=== PATIENT | female | born 1985 | race Caucasian/White ===

== ENCOUNTER → 2018-06-23 | Outpatient (CLI) | payer BC ==
--- NOTE | 2018-06-23 15:27 | PCVCIMAG ---
APPROVED REPORT Study performed: 06/23/2018 12:42:03 EXAM: Comprehensive 2D, Doppler, and color-flow Echocardiogram Patient Location: Echo lab Status: routine BSA: 1.89 HR: 97 bpmBP: 110/90 mmHg Rhythm: NSR Other Information Study Quality: Good Risk Factors: Cardiac Risk Factors: FHX of CAD Indications Chest Pain 2D Dimensions IVSd: 12.10 (7-11mm)LVOT Diam: 17.69 (18-24mm) LVDd: 35.49 mm PWd: 12.06 (7-11mm)Ascending Ao: 32.98 (22-36mm) LVDs: 25.64 (25-40mm) Left Atrium: 32.24 (27-40mm) Aortic Root: 30.20 mm LV Single Plane 4CH: 66.99 % LV Single Plane 2CH: 68.57 % Biplane EF: 68.3 % Volumes Left Atrial Volume (Systole) Single Plane 4CH: 29.91 mLSingle Plane 2CH: 37.46 mL LA ESV Index: 18.00 mL/m2 Aortic Valve AoV Peak Jer.: 1.34 m/s AO Peak Gr.: 7.14 mmHgLVOT Max P.05 mmHg LVOT Max V: 1.01 m/s PRISCILA Vmax: 1.85 cm2 Mitral Valve E/A Ratio: 1.5 MV Decel. Time: 216.42 ms MV E Max Jer.: 0.94 m/s MV A Jer.: 0.61 m/s IVRT: 93.43 ms TDI E/Lateral E': 7.83E/Medial E': 10.44 Medial E' Jer.: 0.09 m/s Lateral E' Jer.: 0.12 m/s Pulmonary Valve PV Peak Gr.: 2.96 mmHg Pulmonary Vein P Vein S: 0.58 m/sP Vein A: 0.48 m/s P Vein D: 0.48 m/sP Vein A Dur.: 79.6 msec P Vein S/D Ratio: 1.21 Left Ventricle The left ventricle is normal size. There is normal LV segmental wall motion. There is normal left ventricular wall thickness. Left ventricular systolic function is normal. The left ventricular ejection fraction is within the normal range. LVEF is 65%. The left ventricular diastolic function is normal. Right Ventricle The right ventricle is normal size. The right ventricular systolic function is normal. Atria The left atrium size is normal. The right atrium size is normal. Aortic Valve The aortic valve is normal in structure. No aortic regurgitation is present. There is no aortic valvular stenosis. Mitral Valve The mitral valve is normal in structure. There is no mitral valve regurgitation noted. No evidence of mitral valve stenosis. Tricuspid Valve The tricuspid valve is normal in structure. There is no tricuspid valve regurgitation noted. Pulmonic Valve The pulmonary valve is normal in structure. There is no pulmonic valvular regurgitation. Great Vessels The aortic root is normal in size. IVC is normal in size and collapses with >50% inspiration Pericardium There is no pericardial effusion. <Conclusion> The left ventricle is normal size. There is normal left ventricular wall thickness. Left ventricular systolic function is normal. The right ventricle is normal size. The left atrium size is normal. The right atrium size is normal. There is no aortic valvular stenosis. There is no mitral valve regurgitation noted. There is no tricuspid valve regurgitation noted.
--- NOTE | 2018-06-23 15:35 | PCVCIMAG ---
APPROVED REPORT Study performed: 06/23/2018 12:57:58 Exam: Stress Echocardiogram Indication: chest pain, family hx Patient Location: Echo lab Stress Nurse: Smiley Jerez RN Status: routine Ht: 5 ft 5 in HR: 97 bpm BP: 110/90 mmHg Medical History Medical History: HTN Procedure The patient underwent an Exercise Stress Test using the Rene Protocol. Blood pressure, heart rate, and EKG were monitored. An Echocardiogram was performed by security system technician in four stages in quad fashion. At peak stress, four selected images were obtained and placed side by side with resting images for comparison. Stress Test Details Stress Test: Exercise stress testing was performed using a Rene protocol. HR Resting HR: 97 bpmMax Heart Rate (APMHR): 186 bpm Max HR Achieved: 196 bpmTarget HR (85% APMHR): 158 bpm % of APMHR: 105 HR response to stress: Normal HR response to stress BP Resting BP: 110/90 mmHg Max BP: 178/90 mmHg ECG Resting ECG: Sinus Rhythm Stress ECG: Sinus Rhythm ST Change: Non-ischemic Recovery ECG: Sinus Rhythm Clinical Reason for Termination: Maximal effort Exercise duration: 9 min sec Highest Stage Achieved: Stage 3: 3.4 mph at 14% grade. Exercise capacity: 10.10 METs Overall Exercise Capacity for Age: Average Pre-Stress Echo The resting Echocardiogram showed normal left ventricular contractility with an estimated Ejection Fraction of about 55-60%. Normal wall motion in all segments on baseline images. Post-Stress Echo The stress Echocardiogram showed normal left ventricular contractility with an estimated Ejection Fraction of about 65-70%. Normal augmentation of wall motion in all segments on post stress images. Clinical No clinical or ECG evidence for ischemia. Conclusion Clinical Response: Non-ischemic Exercise Capacity: Average Stress ECG Response: Non-ischemic Stress Echo Images: Non-ischemic The left ventricle is normal in size and wall thickness in both the rest and stress images. Other Information Study Quality: Good <Conclusion> The left ventricle is normal in size and wall thickness in both the rest and stress images.
== END | disposition home or self-care (01) ==
LOC: PCVCIMAG 13:05
PROVIDERS: ATTEND Internal Medicine Cardiovascular Disease
DX: R42 Dizziness and giddiness (principal); I10 Essential (primary) hypertension
CPT/HCPCS: 93306; 93351